=== PATIENT | female | born 1985 ===

== ENCOUNTER 2022-10-26 00:46 | Emergency (ER) | payer OTHER, SELFPAY ==
[2022-10-26 01:02] VITALS: BP 125/87; PULSE 98; RESP 18; O2SAT 99; BMI 32.9
--- NOTE | 2022-10-26 04:58 | ED_ITS ---
HPI - Animal Bite General Chief Complaint: Animal Bite Stated Complaint: Dog bite/L Leg Time Seen by Provider: 10/26/22 04:38 Source: patient Mode of arrival: ambulatory Limitations: no limitations History of Present Illness HPI narrative: 37-year-old female who presents emergency department for evaluation of a dog bite to her left calf. 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 She states that there is a unit in which the homeless client can have support animals. She states she went into the unit in order to do a sense is count when a pit bull attacked her and bit her left leg. She states that she does not know anything about the pit bulls rabies vaccinations. Patient is not certain when she had her last tetanus shot. Related Data Previous Rx's Medication Instructions Recorded amoxicillin 875 mg-potassium 1 tab PO Q12H 5 days #10 tabs 10/26/22 clavulanate 125 mg tablet Allergies Allergy/AdvReac Type Severity Reaction Status Date / Time peas Allergy Anaphylaxis Verified 10/26/22 01:01 Review of Systems Review of Systems: Yes all other systems are reviewed and are negative [facility] Past Medical History [facility] Narrative: Past medical history: Asthma, GERD, depression, anxiety, PTSD, environmental allergies (trees, mites, peas). 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 Social History Social History Smoked in Last 30 Days: No Use of substances other than those prescribed or required for medical reasons: No Advance Directives: No Advance Directives Information Provided: No Physical Exam ED Vital Signs: Vital Signs - 24 hr 10/26/22 01:02 10/26/22 05:08 Temperature 97.9 F Pulse Rate 98 82 Respiratory Rate 18 16 Blood Pressure 125/87 132/85 Pulse Oximetry 99 98 Oxygen Delivery Method Room Air Room Air BMI result Body Mass Index 32.9 Vital signs were normal General: Awake, alert, female patient, in no distress Left leg exam: The patient has a circular wound which appears to be consistent with a bite connor with several punctures to the medial aspect of the left calf. Her extremities neurovascular intact Medical Decision Making Medical Decision Making MDM Narrative: 37-year-old female who presents emergency department for evaluation of dog bite to the left lateral thigh prior to coming to the emergency department. The dog is owned by a person who is living in a homeless nursing home. The rabies status of the dog is not verifiable and it is unclear if the dog can be quarantine therefore I recommended that the patient be treated with rabies immunoglobulin and rabies vaccination in the patient did agree. I did clean the patient's wound with Betadine and then injected 2.5 mL of the rabies immunoglobulin around the bite site. The remaining 2.8 mL as and intermuscular injection. Patient is also ordered to get a rabies vaccination IM and Tdap IM. Patient will be started on Augmentin 875/125 mg every 12 hours for 5 days, she was given her 1st dose here in the emergency department. The patient will be set up for a rabies vaccine schedule with instructions on when to return to the outpatient short- stay clinic. Differential Diagnosis Differential Diagnoses: The differential diagnosis associated with the presentation includes Differential diagnosis includes was not limited to rabies exposure, animal bite Discharge Plan Discharge Clinical Impression: Bite by animal, Encounter for prophylactic administration of rabies immune globulin, Need for rabies vaccination Patient Disposition: Home, Self-Care Instructions: Rabies Vaccine (By injection), Rabies Immune Globulin (By injection), Animal Bite (ED) Additional Instructions: You were given rabies immunoglobulin injected around the wound and in your arm. This medicine will help give you immediate immunity against the rabies virus. You were also given a rabies vaccination. You will need to complete the rabies vaccination series as directed. You were given a tetanus, diptheria and Pertussin immunizations (Tdap). 5% of dog bites become infected therefore I am giving you an antibiotic called Augmentin (amoxicillin and clavulanic acid) 875/125 mg 1 pill every 12 hours for 5 days. Take ibuprofen 200 mg pills, 2 pills every 6 hours as needed for pain. Take Tylenol (acetaminophen) 500 mg pills, 2 pills every 6 hours as needed for pain. Apply bacitracin to the dog bite wound twice a day for 2 weeks. Follow-up with your doctor in 2 days. Please return to the emergency department if your symptoms get worse or if you develop any symptoms that are concerning to you. Prescriptions: New amoxicillin-pot clavulanate 875-125 mg tablet 1 tab PO Q12H 5 Days Qty: 10 0RF
[2022-10-26 05:08] VITALS: BP 132/85; PULSE 82; RESP 16; TEMP 36.6; O2SAT 98
[2022-10-26] MEDS: Diphth,Pertus(ACell),Tet Adult 0.5 ML SYRINGE IM (06:03)
[2022-10-26] MEDS: Amoxicillin/Potassium Clav 875 MG TABLET PO (06:05)
[2022-10-26] MEDS: Rabies Immune Globulin/PF 900 UNIT/3 ML VIAL 1578 UNIT IM (06:05)
== END 2022-10-26 06:42 | disposition home or self-care (01) ==
PROVIDERS: Emergency Provider Emergency Medicine Emergency Medical Services
DX: S81.852A Open bite, left lower leg, initial encounter (principal); W54.0XXA Bitten by dog, initial encounter; Y93.89 Activity, other specified; Y92.89 Other specified places as the place of occurrence of the external cause; Y99.0 Civilian activity done for income or pay; Z20.3 Contact with and (suspected) exposure to rabies
CPT/HCPCS: 90375; 90471; 90472; 90675; 90715; 96372; 99284

== ENCOUNTER 2022-10-30 15:37 | Outpatient (REF) | payer OTHER, SELFPAY | END 2022-10-30 15:38 | disposition home or self-care (01) | LOC: HO.MDS 15:37 | PROVIDERS: Visit Provider Emergency Medicine Emergency Medical Services | DX: T14.8XXD Other injury of unspecified body region, subsequent encounter (principal); W54.0XXD Bitten by dog, subsequent encounter; Y93.9 Activity, unspecified; Y92.9 Unspecified place or not applicable; Y99.9 Unspecified external cause status; Z20.3 Contact with and (suspected) exposure to rabies; Z29.14 Encounter for prophylactic rabies immune globulin | CPT/HCPCS: 90471; 90675; 96372 ==

== ENCOUNTER 2022-11-03 15:17 | Outpatient (REF) | payer OTHER, SELFPAY | END 2022-11-03 15:18 | disposition home or self-care (01) | LOC: HO.MDS 15:17 | PROVIDERS: Visit Provider Emergency Medicine Emergency Medical Services | DX: T14.8XXA Other injury of unspecified body region, initial encounter (principal); W54.0XXA Bitten by dog, initial encounter; Y93.9 Activity, unspecified; Y92.9 Unspecified place or not applicable; Y99.9 Unspecified external cause status; Z20.3 Contact with and (suspected) exposure to rabies; Z29.14 Encounter for prophylactic rabies immune globulin | CPT/HCPCS: 90471; 90675 ==